=== PATIENT | male | born 1935 | race Caucasian/White ===

== ENCOUNTER 2024-09-28 10:21 | Emergency (ER) | payer MEDICARE, OTHER, SELFPAY ==
[2024-09-28 10:35] VITALS: BP 111/61; PULSE 61; RESP 18; TEMP 36.2; O2SAT 95
--- NOTE | 2024-09-28 10:52 | ED.MALEGU ---
HPI - Male Genitourinary General Chief complaint: Urogenital-Male Stated complaint: uti symptoms Time Seen by Provider: 09/28/24 10:37 Source: patient Mode of arrival: ambulatory Limitations: no limitations History of Present Illness HPI Narrative: 89-year-old male with history of dementia presents with pccfvgry-wm-ylk with complaint of altered mental status this morning when he woke up at assisted living. Qpigbabf-wh-uvw states that patient is at baseline. Patient has been at Assisted living for 3 weeks. Daughter states that patient is usually more awake at night. Has been staying in bed and not eating breakfast at assisted living facility. This morning woke him up early and staff felt that he was disoriented. Patient states that he is feeling fine. Ambulatory with steady gait. Assisted living staff wanted patient's urine checked due to a history of urinary tract infection causing altered mental status in the past. Afebrile. All systems reviewed and negative except as noted above. Related Data Home Medications ?Medication ?Instructions ?Recorded ?Confirmed ?Last Taken ?Type donepezil 10 mg tablet mg 09/28/24 Unknown History levothyroxine 25 mcg tablet mcg 09/28/24 Unknown History simvastatin 40 mg tablet mg 09/28/24 Unknown History Allergies Allergy/AdvReac Type Severity Reaction Status Date / Time No Known Allergies Allergy Unverified 09/28/24 10:42 Review of Systems Review of Systems: CONSTITUTIONAL: Denies fever, chills, or sweats. EYES: Denies visual changes, redness, or discharge. ENT: Denies rhinorrhea, congestion, sore throat, or otalgia. CARDIOVASCULAR: Denies chest pain, palpitations, or edema. RESPIRATORY: Denies cough or dyspnea. GASTROINTESTINAL: Denies abdominal pain, nausea, vomiting, or diarrhea. GENITOURINARY: Denies dysuria or hematuria. SKIN: Denies rash or itching. MUSCULOSKELETAL: Denies back pain, joint pain, or myalgia. NEUROLOGIC: Denies headache, numbness, or weakness. PSYCHIATRIC: Denies anxiety or depression. All other systems reviewed are negative, except as documented in HPI. PMFSH Comments At time of signature, agree with nursing past medical, surgical, social and family history. There is no relevant family history pertinent to the presenting complaint. Exam Narrative: GENERAL: This is a well-nourished, well-developed patient, in no apparent distress. HEAD: normocephalic, atraumatic. EYES: PERRL. Sclera clear/white. Vision is grossly intact. EARS: External ears normal, auditory canals clear and without drainage, TMs normal without perforation. Hearing grossly intact. NOSE: External nose normal with no obvious nasal discharge, nares without redness, no rhinorrhea. THROAT: Mucous membranes moist, posterior pharynx clear. NECK: Neck supple, non-tender without lymphadenopathy, masses or thyromegaly. CARDIOVASCULAR: Regular rate and rhythm without murmurs, gallops, or rubs. RESPIRATORY: Clear to auscultation. Breath sounds equal bilaterally. No wheezes, rales, or rhonchi. SKIN: warm, Dry, intact with no suspicious lesions or rash, good texture and turgor. NEURO: awake, alert, and oriented to person, place. At baseline per family. There were no obvious focal neurologic abnormalities. EXTREMITIES: No joint tenderness, effusion, or edema noted. Course Course Level of Care: Express Care Visit Vital Signs Vital signs: Vital Signs Temperature 36.2 C L 09/28/24 10:35 Pulse Rate 61 09/28/24 10:35 Respiratory Rate 18 09/28/24 10:35 Blood Pressure 111/61 09/28/24 10:35 Pulse Oximetry 95 09/28/24 10:35 Oxygen Delivery Room Air 09/28/24 10:35 Temperature 36.2 C L 09/28/24 10:35 Pulse Rate 61 09/28/24 10:35 Respiratory Rate 18 09/28/24 10:35 Blood Pressure 111/61 09/28/24 10:35 Pulse Oximetry 95 09/28/24 10:35 Oxygen Delivery Room Air 09/28/24 10:35 Reviewed MDM - Male Genitourinary MDM Narrative Medical decision making narrative: urinalysis normal. No urine culture ordered. Patient is well-appearing, nontoxic. Vital signs stable. Patient has no complaints today. Per patient's rfcvhgwm-zq-mpr he is at baseline, she has no concerns for change in mental status today. Will discharge back to assisted living. Please be advised this is a medical document. It is intended for kusu-bw-uenr communication. It is written in medical language and may contain unfamiliar abbreviations or verbiage. Medical documents are intended to carry relevant information, facts as evident, and the clinical opinion of the practitioner at the time of the encounter. This report may have been done utilizing a voice recognition system. Attempts have been made to correct errors. However, there may be uncorrected grammatical, spelling, and recognition errors present. The file time of this note does not necessarily represent the time of service. Discharge Plan Discharge Clinical Impression: Well adult health check Patient Disposition: Home Condition: Stable Additional Instructions: Your urinalysis was normal today. Your vital signs were normal. Follow up with your primary care physician as needed. Patient Language: Gibraltarian Prescriptions: No Action donepezil 10 mg tablet simvastatin 40 mg tablet levothyroxine 25 mcg tablet Follow-up/Referrals: Damion,MD Brody [Primary Care Provider] - Time of Disposition: 10:59
[2024-09-28 11:00] LABS: EDUAAPPEAR Clear; EDUABILI Negative (Negative); EDUABLOOD Negative (Negative); EDUACOLOR1 Yellow; EDUAGLUCOSE Negative (Negative); EDUAKETONE Negative (Negative); EDUALEUKO Negative (Negative); EDUANITRATE Negative (Negative); EDUAPROTEIN Negative (Negative)
--- OUTSIDE RECORDS SUMMARY | 2024-09-28 11:43 | XMS_ITS | Encounter Summary ---
Author Organization [facility] Address [address] [place] [address] Care Team Providers Care Surveillance Director Name Role Phone Brody Bruno MD Primary Care Provider [phone] Reason for Visit * Reason Onset Date Comments Medication 09/27/2024 Encounter Details Date Type Department Care Team (Late st Contact Info) Description 09/27/2024 Telephone [facility] Medical [facility] Multispecialty Care - [place] [address] [place] [address] [address] [place] [address] Brody Bruno MD [address] [place] [address] [address] [place], [place] [id number] Medication Social History Tobacco Use Types Packs/Day Years Used Date Smoking Tobacco: Former Cigarettes Q uit: 06/22/1977 Pipe Smokeless Tobacco: Never Comments:counseled by Dr Karon nobles Alcohol Use Standard Drinks/Week Comments Not Currently 0 (1 standard drink = 0.6 oz pur e alcohol) few times per year AUDIT-C Answer Date Recorded Q1: How often do you have a drink containing alcohol? Never 08/19/2023 Q2: How many drinks containi ng alcohol do you have on a typical day when you are drinking? Patient does not drink Q3: How often do you have si x or more drinks on one occasion? Never 08/19/2023 PHQ-2 Answer Date Recorded Patient Health Questionnaire-2 Score 1 08/19/2023 Sex and Gender Information Value Date Recorded Sex Assigned at Male 01/11/2024 11:54 AM CDT Legal Sex Male 5:09 PM CDT Gender Identity Male 01/11/2024 11:54 AM CDT Sexual Orientation Straight 01/11/2024 11 :54 AM CDT documented as of this encounter Progress Notes * Marlene Mcclain MA - 09/28/2024 8:49 AM CDT Medication list has been faxed. * Jasmin Huitron - 09/27/2024 3:34 PM CDT Lucero Calderon LPN from [facility] is requesting that a medication list signed by Dr. Brody Bruno be faxed to [phone]. documented in this encounter Plan of Treatment Upcoming Encounters Date Type Department Care Team (Late st Contact Info) Description 11/15/2024 2:00 PM CDT Office Visit [facility] Medical Group Multispecialty Care [place] [address] [address] [place] [address] Brody Bruno MD [address] [place] [address] documented as of this encounter Goals Goal Patient Goal Type Associated Problems Recent Progress Patient-Stated? Author Reduce Blood Pressure Blood Pressure Not on track(2021 2:42 PM CDT) No Meaghan Adhikari RN Note: Patient/Family will monitor B/P several times per week and report to physician or CC if B/P consistently >140/90 Patient will maintain a low sodium diet. Patient to take all medications as prescribed. Establish Plan for Regular Lab Work Lifestyle On track(2021 2:42 PM CDT) Meaghan Blair, RN Note: Mixed hyperlipidemia: Lifestyle modifications: Dietary modification, exercise and weight control. Patient will take medications as directed. Establish Plan for Symptom Monitoring- hypothyroidism Lifestyle On track(2021 2:42 PM CDT) Meaghan Blair RN Note: Patient/family will understand s/s of hypothyroidism and report the onset of changes. Patient will take medications as prescribed and get routine lab work. 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
--- OUTSIDE RECORDS SUMMARY | 2024-09-28 11:43 | XMS_ITS | Clinical Summary ---
Author Organization [facility] Address [address] [place] [address] Care Team Providers Care Furniture Reproducer Name Role Phone Brody Bruno MD Primary Care Provider [phone] Allergies No known active allergies Medications [place] & Syringes MiscIndications:Vi tamin B 12 deficiency Use weekly to dispense vitamin B12 thanks. Okay to substitute. 200 each 11 01/14/20 23 Active B-D 3CC LUER-MARGARETH SYR 22GX1 22G X 1 3 ML Misc USE EVERY 2 WEEKS TO DISPENSE VITAMIN B12 05/26/20 23 Active triamcinolone (KENALOG) 0.1 % creamIndications:E czema, unspecified type Apply topically daily. Apply to dry scaly skin in the ear for 7 days then stop 80 g 12/23/19 24 Active cyanocobalamin (B-12) 1000 MCG/ML injectionIndicatio ns:Vitamin B 12 deficiency Inject 1 mL (1,000 mcg total) into the muscle every 21 days. 30 mL 09/09/19 25 Active donepezil (ARICEPT) 10 MG TabIndications:Mil d cognitive impairment Take 1 tablet (10 mg total) by mouth nightly at bedtime. 90 tablet 09/09/19 25 Active levothyroxine (SYNTHROID) 25 MCG tabletIndications: Acquired hypothyroidism Take 1 tablet (25 mcg total) by mouth every morning. 90 tablet 09/09/19 25 Active lisinopril (PRINIVIL) 10 MG tabletIndications: Primary hypertension Take 1 tablet (10 mg total) by mouth daily. 90 tablet 09/09/19 25 Active simvastatin (ZOCOR) 40 MG tabletIndications: Mixed hyperlipidemia Take 1 tablet (40 mg total) by mouth nightly at bedtime. 90 tablet 09/09/19 25 Active vitamin D2, ergocalciferol, (DRISDOL) 1.25 mg capsuleIndications :MCI (mild cognitive impairment) with memory loss Take 1 capsule (50,000 Units total) by mouth every 7 days. 12 capsule 09/09/19 25 Active donepezil (ARICEPT) 10 MG TabIndications:Mil d cognitive impairment Take 1 tablet (10 mg total) by mouth nightly at bedtime. 90 tablet 3 05/16/20 24 025 Discontin ued(Reord er) levothyroxine (SYNTHROID) 25 MCG tabletIndications: Acquired hypothyroidism Take 1 tablet (25 mcg total) by mouth every morning. 90 tablet 3 05/16/20 24 025 Discontin ued(Reord er) lisinopril (PRINIVIL) 10 MG tabletIndications: Primary hypertension Take 1 tablet (10 mg total) by mouth daily. 90 tablet 3 05/16/20 24 025 Discontin ued(Reord er) simvastatin (ZOCOR) 40 MG tabletIndications: Mixed hyperlipidemia Take 1 tablet (40 mg total) by mouth nightly at bedtime. 90 tablet 3 05/16/20 24 025 Discontin ued(Reord er) vitamin D2, ergocalciferol, (DRISDOL) 1.25 mg capsuleIndications :MCI (mild cognitive impairment) with memory loss Take 1 capsule (50,000 Units total) by mouth every 7 days. 12 capsule 3 05/16/20 24 025 Discontin ued(Reord er) cyanocobalamin (B-12) 1000 MCG/ML injectionIndicatio ns:Vitamin B 12 deficiency Inject 1 mL (1,000 mcg total) into the muscle every 21 days. 30 mL 11 05/16/20 24 025 Discontin ued(Reord er) Active Problems Problem Noted Date Diagnosed Date Acquired hypothyroidism 01/27/2022 Prediabetes 01/02/2022 Primary hypertension 01/01/2022 Mixed hyperlipidemia 01/01/2022 Resolved Problems Problem Noted Date Diagnosed Date Resolved Date Care Management 02/05/2022 05/12/2022 Encounters Date Type Department Care Team Description 09/27/2024 Telephone [place] [address] [address] [place] [address] Brody Bruno MD Medication 09/26/2024 Telephone [place] [address] [address] [place] [address] Brody Bruno MD Orders 09/21/2024 Telephone [place] [address] [place] [address] Brody Bruno MD Information 09/08/2024 Orders Only [place] [address] [place] [address] Brody Bruno MD 09/06/2024 Scan [facility] Scanned, [facility] 09/05/2024 Telephone [place] [address] [place] [address] [place] [address] Brody Bruno MD Update; Medication; Returned Call 08/31/2024 Telephone [place] [address] [address] [place] [address] Brody Bruno MD Information (Patient moving into local Memory Care Unit.) 08/29/2024 Scan [facility] Scanned, Doc [facility] from Last 3 Months Immunizations Name Administration Dates Next Due Fluzone High Dose (IIV, trivalent, 0.5mL) 2023 Fluzone High Dose - >Age 65 (Prefilled Syringe) 07/14/2023,03/12/2022,03/29/2020 Hepatitis A/Hepatitis B(Twinrix) 2014 Influenza Adult (Generic) 04/07/2002 MMR (Generic) 10/09/2014,2014 MMR (MMRII) 10/09/2014,2014 MODERNA COVID-19 (12+) MRNA, LNP-S, PF, 100 MCG/ 0.5 ML DOSE 08/16/2020,07/19/2020 Pneumococcal (Pneumovax 23) 03/29/2020 Pneumococcal (Prevnar 13) 03/12/2022,07/31/2014 Td (TDVAX) 02/28/2008 Tdap (Generic) 07/02/2022,03/09/2012 Zoster (Zostavax) 81352 Unt/0.65Ml 08/23/2008 Family History Medical History Relation Comments Cancer Father Colon cancer (De ceased) Colon Cancer Father No Known Problems Mother Relation Status Comments Father Mother Social History Tobacco Use Types Packs/Day Years Used Date Smoking Tobacco: Former Cigarettes Q uit: 06/22/1977 Pipe Smokeless Tobacco: Never Tobacco Cessation:Counseling Given: Yes Comments:counseled by Dr Bruno Alcohol Use Standard Drinks/Week Comments Not Currently [...] Orientation Straight 01/11/2024 11 :54 AM CDT Last Filed Vital Signs Vital Sign Reading Time Taken Comments Blood Pressure 120/74 05/16/2024 2:06 PM COAL PASSER Pulse 86 05/16/2024 2:06 PM COAL PASSER Temperature 36.1 C (97 F) 05/16/2024 2:06 PM COAL PASSER Respiratory Rate 16 05/16/2024 2:06 PM COAL PASSER Oxygen Saturation 96% 05/16/2024 2:06 PM COAL PASSER Inhaled Oxygen Concentration - - Weight 85.2 kg (187 lb 12.8 oz) 05/16/2024 2:06 PM COAL PASSER Height 182.9 cm (6') 05/16/2024 2:06 PM COAL PASSER Body Mass Index 25.47 05/16/2024 2:06 PM COAL PASSER Plan of Treatment Upcoming Encounters Date Type Department Care Team (Late st Contact Info) Description 11/15/2024 2:00 PM CDT Office Visit [facility] Medical Group Multispecialty Care - [place] [address] [address] [place], [place] [id number] Brody Bruno MD [address] [facility] [address] [place] [address] Health Maintenance Due Date Last Done Comments Zoster Vaccines (2 of 3) 10/18/2008 08/23/2008 RSV Immunization or 60+ Years (1 - 1-dose 75+ series) 2012 COVID-19 Vaccine ( - 2023-2 5 season) 2024 06/03/2022, 08/16/2020, 07/19/2020 PHQ-2 (Physician [place]) 06/22/2024 08/19/2023 DTaP, Tdap and Td Vaccines ( 3 - Td or Tdap) 07/02/2032 07/02/2022, 03/09/2012, 02/28/2008 Annual Medicare Wellness Visit 03/03/2045 08/19/2023 Postponed from 08/20 (Future Appointment) Pneumococcal Vaccine: 65+ Years Completed 03/12/2022, 03/29/2020, 07/31/2014 Meningococcal B Vaccine Aged Out No l onger eligible based on patient's age to complete this topic Meningococcal Vaccine Aged Out No pamela adama eligible based on patient's age to complete this topic RSV Immunizations Under 20 Months Aged Out No longer eligible b ased on patient's age to complete this topic Goals Goal Patient Goal Type Associated Problems [...] 2:42 PM CDT) Meaghan Blair RN Note: Mixed hyperlipidemia: Lifestyle modifications: Dietary modification, exercise and weight control. Patient will take medications as directed. Establish Plan for Symptom Monitoring- hypothyroidism Lifestyle On track(2021 2:42 PM CDT) Meaghan Blair RN Note: Patient/family will understand s/s of hypothyroidism and report the onset of changes. Patient will take medications as prescribed and get routine lab work. Insurance MEDICARE [facility] Unique Property [facility] Advance Directives Documents on File Type Date Recorded Patient [employer] Expl anation Advance Directives and Livin g Will 09/09/2024 11:15 AM POLST Care Teams Furniture Reproducer Relationship Specialty Start Date End Date Brody Bruno MD [address] [facility] [address] [place] [address] PCP - General INTERNAL MEDICINE 01/01/22
--- OUTSIDE RECORDS SUMMARY | 2024-09-28 11:43 | XMS_ITS | Encounter Summary ---
Author Organization [facility] - [facility] Address [address] [place] [address] Care Team Providers Care Tunnel Inspector Name Role Phone Brody Bruno MD Primary Care Provider [phone] Encounter Details Date Type Department Care Team (Latest Contact Info) Description 12/23/2023 [employer] Message Enc [facility] Medical Group Multispecialty Care - [place] [address] [address] [place] [address] Brody Bruno MD [address] [place] [address] [address] [place] [address] Assisted Living / Memory Care Social History Tobacco Use Types Packs/Day Years [...] AM CDT documented as of this encounter Plan of Treatment Upcoming Encounters Date Type Department Care Team (Late st Contact Info) Description 11/15/2024 2:00 PM CDT Office Visit [facility] Medical Group Multispecialty Care - [address] [place] [address] Bordy Bruno MD [address] [facility] [address] [place] [address] documented as of this encounter Goals Goal [...] Total Score: 1 07/02/19 23 8:48 AM BONE CHAR KILN TENDER documented as of this encounter Care Teams Tunnel Inspector Relationship Specialty Start Date End Date Brody Bruno MD [address] [address] PCP - General INTERNAL MEDICINE 01/01/22 documented as of this encounter
--- OUTSIDE RECORDS SUMMARY | 2024-09-28 11:43 | XMS_ITS | Clinical Summary ---
Author Organization [employer] [facility] Address [address] [place] [address] Care Team Providers Care Phlebotomy Manager Name Role Phone Unavailable Primary Care Provider Unavailabl e Social History Tobacco Use Types Packs/Day Years Used Date Smoking Tobacco: Never Assessed Sex and Gender Information Value Date Recorded Sex Assigned at Not on file Legal Sex Male 1:00 PM CDT Gender Identity Not on file Sexual Orientation Not on file Plan of Treatment Health Maintenance Due Date Last Done Comments DTAP/TDAP/TD VACCINES (1 - Tdap) 1954 PNEUMOCOCCAL VACCINE 50+ YEARS (1 of 1 - PCV) 09/01/18 88 ZOSTER VACCINE (1 of 2) 09/02/1987 RSV VACCINE (60+ or ) (1 - 1-dose 75+ series) 2012 INFLUENZA VACCINE (#1) 2024
--- OUTSIDE RECORDS SUMMARY | 2024-09-28 11:43 | XMS_ITS | Continuity of Care Document ---
Author Name [facility] Organization [facility] Care Team Providers Care Business Process Associate Name Role Phone [facility] Unavailable Unavailable Immunizations Combined list of available immunizations from the Department of Defense and Veterans Affairs facilities. Immunization Series Date Given Administered By Site Reaction Lot Number CVX Code Drug Floor Attendant Status Comments Source COVID Vaccine Moderna 2020 zIdania ht Arm [id number] complet ed COVID Vaccine Moderna 08/16/20 Given Ambulat ory Pharmac y COVID Vaccine Moderna 2020 zzLef t Arm [id number] complet ed COVID Vaccine Moderna 07/19/20 Given Ambulat ory Pharmac y measles/mumps /rubella virus vaccine 2014 zzLef t Arm [id number] Merck & Company Inc complet ed measles/m umps/rube lla virus vaccine 10/09/14 Given Ambulat ory Pharmac y hepatitis A-hepatitis B vaccine 2014 zzLef t Arm [id number] GlaxoSmithKli ne complet ed hepatitis A-hepatit is B vaccine 09/01/14 Given Ambulat ory Pharmac y measles/mumps /rubella virus vaccine 2014 zzLef t Arm [id number] Merck & Company Inc complet ed measles/m umps/rube lla virus vaccine 09/01/14 Given Ambulat ory Pharmac y pneumococcal 13-valent conjugate (PCV13) 2014 zzLef t Arm [id number] [employer] complet ed pneumococ edwige 13-valent conjugate (PCV13) 07/31/14 Given Ambulat ory Pharmac y tetanus, diphtheria, acellular pertu is 2011 zIdania ht Arm [id number] 115 GlaxoSmithKli ne complet ed tetanus, diphtheri a, acellular pertussis 03/09/12 Given Ambulat ory Pharmac y zoster vaccine live 2008 zzLef t Arm [id number] Merck & Company Inc complet ed zoster vaccine live 08/23/08 Given Ambulat ory Pharmac y tetanus-dipht h toxoids (Td) adult/adol 2007 zzLef t Arm [id number] sanofi pasteur complet ed tetanus-d iphth toxoids (Td) adult/ado l 02/28/08 Given Ambulat ory Pharmac y influenza virus vaccine,split 2001 zzLef t Arm [id number] 15 sanofi pasteur complet ed influenza virus vaccine,s plit 04/07/02 Given Ambulat ory Pharmac y Procedures Combined list of: 1) Procedures from Department of Veterans Affairs facilities [facility], not all [place] non-surgical procedures are included; 2) All procedures from the Department of Defense facilities. Procedure Procedure Type Code Date Perfomer Comments Sourc e No data available for this section Ambulatory P harmacy Assessment and Plan Combined list of future care activities from Department of Defense and Veterans Affairs facilities (e.g., assessment and plan notes, appointments, orders, and referrals). Additional future care activities may be listed in the Plan of Care section. Result Assessment and Plan Date Source Assessment and Plan No data available for this section 09/28/2024 Ambulatory Pharmacy Functional Status Combined list of recent functional and cognitive assessments recorded at Department of Defense and Veterans Affairs ([place] Functional [place] Measurement (FIM) Scale: 1 = Total Assistance (Subject = 0% +), 2 = Maximal Assistance (Subject = 25% +), 3 = Moderate Assistance (Subject = 50% +), 4 = Minimal Assistance (Subject = 75% +), 5 = Supervision, 6 = Modified [place] (Device), 7 = Complete [place] (Timely, Safely). Assessment Date/Time Source Assessment Type Assessment Skill Assessment Score Assessment Details No data available for this section
--- OUTSIDE RECORDS SUMMARY | 2024-09-28 11:43 | XMS_ITS | Encounter Summary ---
Author Organization [facility] Address [address] [place] [address] Care Team Providers Care Pad Machine Operator Name Role Phone Brody Bruno MD Primary Care Provider Encounter Details Date Type Department Care Team (Latest Contact Info) Description 06/07/2024 [employer] Message Enc [facility] Medical Group Multispecialty Care - [place] [address] [address] [place] [address] Brody Bruno MD [address] [place] [address] [address] [place] [address] Letter from Doctor - [facility] Social History Tobacco Use Types Packs/Day [...] Description 11/15/2024 2:00 PM CDT Office Visit [facility] Medical Group Multispecialty Care [place] [address] [address] [place] [address] Brody Bruno MD [address] [facility] [address] [place] [address] documented as of this encounter Goals Goal Patient Goal Type Associated Problems Recent Progress Patient-Stated? 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
--- OUTSIDE RECORDS SUMMARY | 2024-09-28 11:43 | XMS_ITS | Encounter Summary ---
Author Organization [facility] Address [address] [place] [address] Care Team Providers Care Box Tender Name Role Phone Brody Bruno MD Primary Care Provider [phone] Encounter Details Date Type Department Care Team (Latest Contact Info) Description 05/14/2024 [employer] Message Enc [facility] Multispecialty Care - [place] [address] [address] [place] [address] Brody Bruno MD [address] [place] [address] [address] [place], [place] [id number] Advance directives Social History Tobacco Use Types Packs/Day Years [...] Description 11/15/2024 2:00 PM CDT Office Visit [facility] Multispecialty Care [place] [address] [address] [place] [address] Brody Bruno MD [address] [facility] [address] [place], [place] [id number] documented as of this encounter Goals Goal [...] 2:42 PM CDT) Meaghan Blair, RN Note: Patient/family will understand s/s of hypothyroidism and report the onset of changes. Patient will take medications as prescribed and get routine lab work. 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
--- OUTSIDE RECORDS SUMMARY | 2024-09-28 11:43 | XMS_ITS | Encounter Summary ---
Author Organization [facility] Address [address] [place] [address] Care Team Providers Care White Mixing Operator Name Role Phone Brody Bruno MD Primary Care Provider [phone] Reason for Visit * Reason Onset Date Comments Orders 09/26/2024 Encounter Details Date Type Department Care Team (Late st Contact Info) Description 09/26/2024 Telephone [facility] Medical [facility] Multispecialty Care - [place] [address] [place] [address] [address] [place] [address] Brody Bruno MD [address] [place] [address] [address] [place], [place] [id number] Orders Social History Tobacco Use Types Packs/Day Years [...] of this encounter Progress Notes * Marlene Burnette MA - 09/28/2024 8:25 AM CDT I called pt [facility] about Recommendations that he be seen my a provider. They asked if we could fax a letter, letter has been faxed advising pt to be evaluated by a provider, if pt is unable to make It to office the notes states to go to the ER to be evaluated for recent concerns of Confusions received from Medical Staff from Pts living facility. * Marlene Burnette MA - 09/26/2024 2:35 PM CDTAddended by: MARLENE BURNETTE on: 09/26/2024 02:35 PM Modules accepted: Orders * Keisha Miguel - 09/26/2024 11:38 AM CDT Bhargavi DENNY with care facility called to request new bloodwork and UA orders for patient. Please return call when available. documented in this encounter Plan of Treatment Upcoming Encounters Date Type Department Care Team (Late st Contact Info) Description 11/15/2024 2:00 PM CDT Office Visit [facility] Medical [facility] Multispecialty Care - [place] [address] [address] [place] [address] Brody Bruno MD [address] [place] [address] documented as of this encounter Goals Goal Patient Goal Type Associated Problems Recent Progress Patient-Stated? 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
--- OUTSIDE RECORDS SUMMARY | 2024-09-28 11:43 | XMS_ITS | Encounter Summary ---
Author Organization [facility] Address [address] [place] [address] Care Team Providers Care Director Of Financial Reporting Name Role Phone Brody Bruno MD Primary Care Provider [phone] Meaghan Adhikari RN Unavailable [phone] Encounter Details Date Type Department Care Team (Late st Contact Info) Description 02/18/2022 [employer] Message Enc [facility] Medical Group Multispecialty Care - [address] [place] [address] Informant[employer]helenZhitu, [facility] Provider test result Social History Tobacco Use Types Packs/Day Years Used Date Smoking Tobacco: Former Smokeless Tobacco: Never Comments:counseled by Dr Karon nobles Alcohol Use Standard Drinks/Week Comments Yes 0 (1 standard drink = 0.6 oz pur e alcohol) occasional PHQ-2 Answer Date Recorded PHQ-2 Score - If the patient scores above 3, please move on to questions 3-9 0 01/29/2022 Sex and Gender Information Value Date Recorded Sex Assigned at Male 01/11/2024 11:54 AM CDT Legal Sex Male 5:09 PM CDT Gender Identity Male 01/11/2024 11:54 AM CDT Sexual Orientation Straight 01/11/2024 11 :54 AM CDT COVID-19 Exposure Response Date Recorded In the last 10 days, have yo u been in contact with someone who was confirmed or suspected to have Coronavirus/COVID-19? No / Unsure 02/13/2022 7:00 PM CDT documented as of this encounter Plan of Treatment Upcoming Encounters Date Type Department Care Team (Late st Contact Info) Description 11/15/2024 2:00 PM CDT Office Visit [facility] Medical Group Multispecialty Care - [place] [address] [address] [place], [place] [id number] Brody Bruno MD [address] [facility] [address] [place], [place] [id number] documented as of this encounter Goals Goal [...] Work Lifestyle On track(2021 2:42 PM CDT) No Meaghan Adhikari RN Note: Mixed hyperlipidemia: Lifestyle modifications: Dietary [...] Diagnoses Not on filedocumented in this encounter Care Teams Director Of Financial Reporting Relationship Specialty Start Date End Date Brody Bruno MD [address] [address] PCP - General INTERNAL MEDICINE 01/01/22 Meaghan Adhikari RN [address] [place] [address] Parish Nurse (Ambulatory) REGISTERED NURSE 02/05/22 documented as of this encounter
--- OUTSIDE RECORDS SUMMARY | 2024-09-28 11:59 | XMS_ITS | Continuity of Care Document ---
Author Name [facility] Organization [facility] Care Team Providers Care Car Shunter Name Role Phone [facility] Unavailable Unavailable Immunizations Combined list of available immunizations from the Department of Defense and Veterans Affairs facilities. Immunization Series Date Given Administered By Site Reaction Lot Number CVX Code Drug Chef Teacher Status Comments Source COVID Vaccine Moderna 2020 zIdania ht Arm [id number] complet ed COVID Vaccine Moderna 08/16/20 Given Ambulat ory Pharmac y COVID Vaccine Moderna 2020 zzLef t Arm [id number] complet ed COVID Vaccine Moderna 07/19/20 Given Ambulat ory Pharmac y measles/mumps /rubella virus vaccine 2014 zzLef t Arm [id number] [employer] complet ed measles/m umps/rube lla virus vaccine 10/09/14 Given Ambulat ory Pharmac y hepatitis A-hepatitis B vaccine 2014 zzLef t Arm [id number] GlaxoSmithKli ne complet ed hepatitis A-hepatit is B vaccine 09/01/14 Given Ambulat ory Pharmac y measles/mumps /rubella virus vaccine 2014 zzLef t Arm [id number] [employer]ck [employer] Inc complet ed measles/m umps/rube lla virus vaccine 09/01/14 Given Ambulat ory Pharmac y pneumococcal 13-valent conjugate (PCV13) 2014 zzLef t Arm [id number] CyActive complet ed pneumococ edwige 13-valent conjugate (PCV13) 07/31/14 Given Ambulat ory Pharmac y tetanus, diphtheria, acellular pertu is 2011 zIdania ht Arm [id number] GlaxoSmithKli ne complet ed tetanus, diphtheri a, acellular pertussis 03/09/12 Given Ambulat ory Pharmac y zoster vaccine live 2008 zzLef t Arm [id number] Merck [employer] Inc complet ed zoster vaccine live 08/23/08 Given Ambulat ory Pharmac y tetanus-dipht h toxoids (Td) adult/adol 2007 zzLef t Arm [id number] sanofi pasteur complet ed tetanus-d iphth toxoids (Td) adult/ado l 02/28/08 Given Ambulat ory Pharmac y influenza virus vaccine,split 2001 zzLef t Arm [id number] 15 sanofi pasteur complet ed influenza virus vaccine,s plit 04/07/02 Given Ambulat ory Pharmac y Procedures Combined list of: 1) [facility], not all [place] non-surgical procedures are included; 2) All procedures [...] at Department of Defense and [place] Affairs [place] Functional [place] Measurement (FIM) Scale: 1 = Total Assistance (Subject = 0% +), 2 = Maximal Assistance (Subject = 25% +), 3 = Moderate Assistance (Subject = 50% +), 4 = Minimal Assistance (Subject = 75% +), 5 = Supervision, 6 = Modified [place] (Device), 7 = Complete [place] (Timely, Safely). Assessment Date/Time Source Assessment Type Assessment Skill Assessment Score Assessment Details No data available for this section
== END 2024-09-28 11:03 | disposition home or self-care (01) ==
PROVIDERS: Emergency Provider Nurse Practitioner Family; PCP Internal Medicine
DX: Z71.1 Person with feared health complaint in whom no diagnosis is made (principal); F03.90 Unspecified dementia, unspecified severity, without behavioral disturbance, psychotic disturbance, mood disturbance, and anxiety; I10 Essential (primary) hypertension; E78.00 Pure hypercholesterolemia, unspecified
CPT/HCPCS: 81003; 99212; G0463